=== PATIENT | male | born 1950 | race Caucasian/White ===

== ENCOUNTER 2017-11-25 07:22 | Day surgery (SDC) | payer MEDICARE, BC ==
[~2017-11-25 07:22] MED LIST: Dextrose 5%-0.45% NaCl 1,000 ML IV SCH; Midazolam 1 MG/ML 2 ML SDV ONE; Sodium Chloride 0.9% 10 ML Syringe FLUSH PRN; fentaNYL 100 MCG/2 ML SDV ONE
[2017-11-25] MEDS ORDERED: Midazolam 1 MG/ML 2 ML SDV IV ONE ×3 (07:23→08:39)
[2017-11-25] MEDS ORDERED: fentaNYL 100 MCG/2 ML SDV IV ONE ×3 (07:23→08:38)
[2017-11-25] MEDS ORDERED: Dextrose 5%-0.45% NaCl 1,000 ML IV SCH (07:30)
--- NOTE | 2017-11-25 09:30 | OR ---
DATE: 11/25/2017 PROCEDURES: Esophagogastroduodenoscopy and multiple pinch biopsies. INSTRUMENT USED: GIF-H180 Olympus video panendoscope. PREMEDICATIONS: No oral topical anesthesia used. Fentanyl 100 mcg intravenous, Versed 2 mg intravenous. Nasal O2 cannula. The procedure was done under pulse oximetry, BP recording, and monitoring manager. INDICATION: The patient with dysphagia and heartburn unexplained and not responsive to medical measures. DESCRIPTION OF PROCEDURE: Esophagogastroduodenoscopy is performed for detection of any active erosive lesions. Bhagat esophagus and/or malignancy also under consideration. H. pylori status to be determined. Esophageal dilatations if indicated, endoscopic hemostasis therapy if needed. The scope was passed with ease. Adequate visualization of the esophagus was made from proximal to distal areas. No upper esophageal lesions identified. No distal esophageal stricture. No uphill or downhill esophageal varices. No Deborah-Molina tear. Grade A erosive changes were noted by Whitman criteria. No esophageal polyp or tumor mass identified. Z-line was seen at around 40 cm distal to the oral verge, configuration consistent with grade 1 by ZAP classification. No proximal gastric varices noted. Gastric fundus examination by retroflexion showed no polypoid lesions. No gastric ulcer, malignant mass, or vascular ectasia identified. Duodenal bulb showed no ulcer. Visualized second part of the duodenum was unremarkable. Multiple pinch biopsies were taken from the gastric antrum and proximal body and sent for PyloriTek test for H. pylori, and if negative in an hour, tissue is to be sent for histopathology. No bleeding was noted from any of the visualized areas at the completion of examination. Photographs were taken of the duodenal bulb, gastric antrum, fundus, and distal esophagus. IMPRESSION: 1. Sliding hiatal hernia. 2. Grade A gastroesophageal reflux disease. The patient tolerated the procedure well. [facility] /[id number]
== END 2017-11-25 10:35 | disposition home or self-care (01) ==
LOC: DL.ENDO 07:22
PROVIDERS: ATTEND Internal Medicine Gastroenterology
DX: R13.10 Dysphagia, unspecified (principal); R12 Heartburn; K29.50 Unspecified chronic gastritis without bleeding; K44.9 Diaphragmatic hernia without obstruction or gangrene; K21.9 Gastro-esophageal reflux disease without esophagitis; I10 Essential (primary) hypertension; E66.09 Other obesity due to excess calories
CPT/HCPCS: 43239; 87077; J2250; J3010; J7042

== ENCOUNTER 2021-12-04 05:56 | Day surgery (SDC) | payer MEDICARE, BC ==
[2021-12-04] MEDS ORDERED: fentaNYL 100 MCG/2 ML SDV IV ONE ×3 (05:57→07:12)
[2021-12-04] MEDS ORDERED: Midazolam 1 MG/ML 2 ML SDV IV ONE ×5 (05:57→07:18)
[2021-12-04] MEDS ORDERED: Sodium Chloride 0.9% 10 ML Syringe FLUSH PRN (06:00)
[2021-12-04] MEDS ORDERED: Dextrose 5%-0.45% NaCl 1,000 ML IV SCH (06:00)
[2021-12-04] MEDS ORDERED: fentaNYL 100 MCG/2 ML SDV ONE ×2 (06:13→06:16)
[2021-12-04] MEDS ORDERED: Midazolam 1 MG/ML 2 ML SDV ONE ×2 (06:13→06:15)
[2021-12-04] MEDS ORDERED: Sodium Chloride 0.9% 10 ML Syringe FLUSH SCH (09:00)
== END 2021-12-04 09:30 | disposition home or self-care (01) ==
LOC: DL.ENDO 05:56
PROVIDERS: ATTEND Internal Medicine Gastroenterology
DX: Z12.11 Encounter for screening for malignant neoplasm of colon (principal); K21.9 Gastro-esophageal reflux disease without esophagitis; N52.9 Male erectile dysfunction, unspecified; E66.09 Other obesity due to excess calories; I10 Essential (primary) hypertension; Z98.890 Other specified postprocedural states; Z88.8 Allergy status to other drugs, medicaments and biological substances; Z01.812 Encounter for preprocedural laboratory examination; Z20.822 Contact with and (suspected) exposure to COVID-19
CPT/HCPCS: J2250; J3010; J7042; U0002

== ENCOUNTER 2022-10-13 20:34 | Emergency (ER) | payer MEDICARE, BC ==
[2022-10-13] MEDS ORDERED: Cyclobenzaprine 10 MG Tab PO ONE (21:35)
[2022-10-13] MEDS ORDERED: Ketorolac 30 MG/ML SDV IM ONE (21:35)
== END 2022-10-13 22:08 | disposition home or self-care (01) ==
LOC: DL.ED 20:34
DX: M51.16 Intervertebral disc disorders with radiculopathy, lumbar region (principal); M62.830 Muscle spasm of back; I10 Essential (primary) hypertension; E66.9 Obesity, unspecified; Z68.30 Body mass index [BMI] 30.0-30.9, adult
CPT/HCPCS: 96372; 99283; A9270; J1885

== ENCOUNTER 2022-11-24 07:11 | Emergency (ER) | payer MEDICARE, BC ==
[2022-11-24] MEDS ORDERED: Dexamethasone 4 MG Tab PO ONE (07:45)
[2022-11-24] MEDS ORDERED: diphenhydrAMINE 25 MG Tab PO ONE (07:46)
[2022-11-24] MEDS ORDERED: Famotidine 20 MG Tab PO ONE (07:46)
[2022-11-24] MEDS: Dexamethasone 6 MG TABLET ONE ×2 (08:08→08:13)
== END 2022-11-24 08:51 | disposition home or self-care (01) ==
LOC: DL.ED 07:11
DX: L50.0 Allergic urticaria (principal); I10 Essential (primary) hypertension; E66.9 Obesity, unspecified; Z68.41 Body mass index [BMI] 40.0-44.9, adult
CPT/HCPCS: 99282; 99283; A9270-GY; J8540

== ENCOUNTER 2023-12-27 18:37 | Emergency (ER) | payer MEDICARE, BC ==
[2023-12-27] MEDS: Take Home: Doxycycline 100 MG Cap, 4 Cap Pack PO ONE (19:08)
[2023-12-27] MEDS: Diphtheria,Pertussis(Acell),Tetanus Vaccine 0.5 ML Syringe IM ONE (19:08)
== END 2023-12-27 19:05 | disposition home or self-care (01) ==
LOC: DL.ED 18:37
DX: L08.9 Local infection of the skin and subcutaneous tissue, unspecified (principal); I10 Essential (primary) hypertension; Z23 Encounter for immunization; Z79.899 Other long term (current) drug therapy
CPT/HCPCS: 90471; 90715; 99283; A9270